=== PATIENT | female | born 1995 | race Caucasian/White ===

== ENCOUNTER 2016-09-02 10:19 | Emergency (ER) | payer MEDICAID ==
[2016-09-02 10:49] LABS: Urine Bilirubin Negative (NEGATIVE); Urine Blood Negative /ul (NEGATIVE); Urine Ketone Negative (NEGATIVE); Urine Nitrite Negative (NEGATIVE); Urine Protein Negative (NEGATIVE); Urine Specific Gravity 1.015 SP.GR. (1.005-1.010); Urine Urobilinogen Normal (NORMAL)
[2016-09-02 10:58] LABS: Urine Appearance Clear; Urine Bacteria TRACE; Urine Color Yellow; Urine RBC None Seen /hpf (0-5)
--- NOTE | 2016-09-02 11:06 | ERNOTE ---
Medical Problem HPI - Narrative Date of Service: 09/02/16 - General Chief Complaint: General Assessment Time Seen by Provider: 09/02/16 10:47 Source: patient Exam Limitations: no limitations - Immun/Allergies/Home Medications Immunizations: IMMUNIZATION HX Immunizations Up to Date Yes History of Influenza Vaccine Yes Hx Pneumococcal Vaccination No Allergies/Adverse Reactions: Allergies miconazole nitrate [From Monistat 3] Allergy (Verified 07/19/16 23:16) Hives skin cleanser combination no.17 [From Monistat 3] Allergy (Verified 07/19/16 23: 16) Hives Home Medications: HOME MEDICATIONS Ibuprofen [Motrin] 200 - 800 mg PO Q6H PRN #100 tab 07/21/16 [Last Taken Unknown ] Cephalexin Monohydrate [Keflex] 500 mg PO QID #40 cap 09/02/16 [Last Taken Unknown] - History of Present History Narrative: Pt. comes in with c/o three day history of sore throat, nausea, vomiting, and dysuria with cramping. Pt. has Suprapubic pain without radiation and dysuria and then she states her sore throat and rhinorrhea started a day later. Pt. denies any SOB, CP, diarrhea, constipation, intolerance of foods or fluids at this time. Review of Systems - Review of Systems Constitutional: Present: no symptoms reported. Absent: recent illness, fever, chills, weakness, fatigue, malaise EYE: Present: no symptoms reported ENT: Present: nose congestion, nasal drainage, sore throat Respiratory: Present: no symptoms reported. Absent: shortness of breath, cough , wheezing Cardiology: Present: no symptoms reported. Absent: chest pain, palpitations, edema Gastrointestinal/Abdominal: Present: nausea, vomiting, abdominal pain - suprapubic. Absent: diarrhea Genitourinary: Present: frequency, dysuria Musculoskeletal: Present: no symptoms reported. Absent: back pain, joint pain Skin: Present: no symptoms reported. Absent: rash, change in color Neurological: Present: no symptoms reported. Absent: headache, dizziness/light- headedness, numbness, tingling Endocrine: Present: no symptoms reported Hematologic/Lymphatic: Present: no symptoms reported All Other Systems: All systems neg except as marked - Patient's Past Medical History Patient History - Medical: UTI'S Patient History - Cardiac/Respiratory: No pertinent hx Patient History - Cancer: No Hx of Cancer Patient History - Surgical Procedures: No surgical history LMP (females 10-50): last week - Family History Mother Family History - Medical: No pertinent hx Father Family History - Medical: No pertinent hx - Social History Living Situations: significant other Smoking Status: Current every day smoker Patient requests Smoking Cessation Consult: No Alcohol Use: none Drug Use: none Physical Exam - Physical Exam General Appearance: Present: wd/wn, alert, no apparent distress Eye Exam: Normal inspection: bilateral, PERRL: bilateral, EOMI: bilateral Ears, Nose, Throat: Present: hearing grossly normal, nasal congestion, pharyngeal erythema Neck: Present: normal inspection, nontender. Absent: lymphadenopathy (R), lymphadenopathy (L) Respiratory: Present: no respiratory distress, normal breath sounds, no accessory muscle use, chest nontender, lungs clear Cardiovascular/Chest: Present: regular rate, rhythm, no murmur, normal peripheral pulses Gastrointestinal/Abdominal: Present: normal bowel sounds, nondistended, soft, no organomegaly, tenderness - suprapubic Back Exam: Present: normal inspection, normal range of motion, no CVA tenderness , no vertebral tenderness Extremity Exam: Present: normal inspection, non-tender, no edema, normal range of motion Neurological Exam: Present: alert, oriented, normal mood/affect, no motor/ sensory deficits, 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 Absent: pallor, skin rash ED Progress - Date and Time Seen: Date and Time: 09/02/16 11:07 Pt. with a high number of luek estrace and some bacteria will treat although pt does have epithelial cells as clinically I feel pt. definitly has a UTI and her culture will not be aeseptic. - Results and Orders Patient's Lab Results:: I have reviewed the patient's lab results. - Vital Signs Patient's Vital Signs:: I have reviewed the patient's vital signs. Vital Signs: Vital Signs 09/02/16 10:29 Temperature 36.2 C L Pulse Rate 82 Respiratory 14 Rate Blood Pressure 142/68 O2 Sat by Pulse 98 Oximetry - Progress/Reassessment Chief Complaint: General Assessment Departure - Departure Clinical Impression: UTI (urinary tract infection) Qualifiers: Urinary tract infection type: acute cystitis Hematuria presence: without hematuria Qualified Code(s): N30.00 - Acute cystitis without hematuria Upper respiratory infection Qualifiers: URI type: unspecified viral URI Qualified Code(s): J06.9 - Acute upper respiratory infection, unspecified; B97.89 - Other viral agents as the cause of diseases classified elsewhere Disposition: Home self-care Condition: Good Instructions: Upper Respiratory Infection, Adult, [id number], Urinary Tract Infection, Adult, [id number] Additional Instructions: [facility] for control and to ensure that UTI is resolved....please use a condoms in the mean time. Prescriptions: Cephalexin Monohydrate [Keflex] 500 mg PO QID #40 cap
[2016-09-02 11:30] VITALS: BP 133/65
== END 2016-09-02 11:28 | disposition home or self-care (01) ==
LOC: ER 10:19
DX: J06.9 Acute upper respiratory infection, unspecified (principal); B97.89 Other viral agents as the cause of diseases classified elsewhere; N30.00 Acute cystitis without hematuria; F17.210 Nicotine dependence, cigarettes, uncomplicated

== ENCOUNTER 2016-09-13 08:53 | Emergency (ER) | payer MEDICAID ==
[2016-09-13 09:05] VITALS: BP 144/84
[2016-09-13] MEDS ORDERED: NORMAL SALINE 1,000 ML IV ONE (09:08)
[2016-09-13 09:21] LABS: Hematocrit 36.1 % (37.0-47.0); Hemoglobin 11.7 gm/dL (12.5-16.0); Mean Cell Volume 86.2 fl (78-100); Mean Corpuscular Hemoglobin 27.9 pg (27-31); Mean Corpuscular Hgb Conc 32.4 g/dl (32-36); Mean Platelet Volume 10.1 fl (6.0-9.5); Neutrophil # 5.1 K/mm3 (1.3-6.0); Neutrophil % 60.4 % (42-75.0); Platelet Count 299 K/mm3 (150-450); Red Blood Count 4.19 M/mm3 (4.2-5.4); Red Cell Distribution Width 12.9 % (11.5-14.0); White Blood Count 8.4 K/mm3 (4.0-10.5)
--- NOTE | 2016-09-13 09:21 | ERNOTE ---
Dizziness ER Record Date of Service: 09/13/16 Presenting Symptoms: other - vomiting Time Seen by Provider: 09/13/16 09:04 Source: patient Exam Limitations: no limitations Immunizations: IMMUNIZATION HX Immunizations Up to Date Yes History of Influenza Vaccine Yes Hx Pneumococcal Vaccination No Allergies/Adverse Reactions: Allergies Allergy/AdvReac Type Severity Reaction Status Date / Time miconazole nitrate Allergy Hives Verified 07/19/16 23:16 [From Monistat 3] skin cleanser combination Allergy Hives Verified 07/19/16 23:16 no.17 [From Monistat 3] Home Medications: HOME MEDICATIONS Norgestimate-Ethinyl Estradiol [[place]-Linyah] 1 each PO DAILY 09/13/16 [Last Taken 09/13/16] Ondansetron [Zofran Odt] 4 mg PO Q8H PRN #6 tab.rapdis 09/13/16 [Last Taken Unknown] - History of Present Illness Narrative: Patient presents to the ED for vomiting. She relates she has been dizzy for the last week. Last night developed non-bloody diarrhea then vomitied this am and has been having on-going diarrhea with increased dizziness with standing. Vomiting and diarrhea are the primary reason she came in. She states she called into work sick and threw up while talking to her boss. No CP or SOB. No abdominal pain. No other sick contacts. Timing and Duration: sudden onset, still present Episodes lasting:: last night Worse/persistent since:: diarrhea persistent Severity: max: moderate Severity: currently: mild Associated Symptoms: Present: nausea, vomiting, light headedness. Absent: headache, weakness Sense of movement: Absent: spinning Decreased ability to stand/walk:: Present: walks w/o assistance. Absent: weak, difficult, off balance, cannot walk, cannot stand, falling Modifying Factors - (Improves): Reports: standing position Modifying Factors - (Worsens): Reports: nothing Review of Systems - Review of Systems Constitutional: Absent: fever ENT: Absent: sore throat Respiratory: Absent: shortness of breath Cardiology: Absent: chest pain Gastrointestinal/Abdominal: Present: vomiting, diarrhea. Absent: abdominal pain Genitourinary: Absent: dysuria Skin: Present: other - rash on armsrecently Neurological: Absent: headache, weakness - Patient's Past Medical History Patient History - Medical: UTI'S Patient History - Cardiac/Respiratory: No pertinent hx Patient History - Cancer: No Hx of Cancer Patient History - Surgical Procedures: No surgical history Patient History - Other: None LMP (Calendar): 08/22/16 - Family History Mother Family History - Medical: No pertinent hx Father Family History - Medical: No pertinent hx - Social History Living Situations: home Smoking Status: Current every day smoker Have you smoked in the past 12 months: Yes Alcohol Use: none Drug Use: none - Immunizations Immunizations Up to Date: Yes Hx Pneumococcal Vaccination: No History of Influenza Vaccine: Yes Physical Exam - Physical Exam General Appearance: Present: alert, no apparent distress Eye Exam: Normal inspection: bilateral, PERRL: bilateral Ears, Nose, Throat: Present: normal ENT inspection, normal pharynx. Absent: nasal congestion, dry mucous membranes Neck: Present: normal inspection Respiratory: Present: no respiratory distress, normal breath sounds, no accessory muscle use, lungs clear Cardiovascular/Chest: Present: regular rate, rhythm, normal peripheral pulses Gastrointestinal/Abdominal: Present: normal bowel sounds, nontender, nondistended, soft. 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 Absent: motor weakness Skin Exam: Present: skin rash, other - apparent contact dermatitis forearms. no other rash, no urticaria. ED Progress - Results and Orders Patient's Lab Results:: I have reviewed the patient's lab results. - Vital Signs Patient's Vital Signs:: I have reviewed the patient's vital signs. Vital Signs: Vital Signs 09/13/16 08:58 Temperature 35.5 C L Pulse Rate 102 H Respiratory 14 Rate Blood Pressure 144/84 O2 Sat by Pulse 99 Oximetry - Progress/Reassessment Chief Complaint: Dizziness Progress Note-Subjective: 09/13/16 10:26 Re-check [id number]. Fluids nearly infused. Feels improved. No vomiting here. She feels like going home. Abd non-tender. Zofran. She is stable non-toxic and in no distress. Departure Clinical Impression: Vomiting, Diarrhea - Departure Disposition: Home self-care Condition: Stable Instructions: Nausea, Adult Additional Instructions: Follow-up with a doctor friday for a re-check. Zofran, this is of uncertain safety in , no breast feeding while taking. Clear liquids. Rest. Return for fever, pain or if your condition worsens of changes in any way. Prescriptions: Ondansetron [Zofran Odt] 4 mg PO Q8H PRN #6 tab.rapdis PRN Reason: Nausea
[2016-09-13 09:36] LABS: Albumin * 3.6 gm/dl (3.4-5.0); Anion Gap 11.1 mmol/L (6.8-13.8); BUN/Creatinine Ratio 15.7 (9.0-21.6); Bilirubin, Total 0.3 mg/dL (0.0-1.1); Ca. Corrected For Albumin 8.7 mg/dL (8.4-10.2); Calcium * 8.7 mg/dL (7.9-10.9); Carbon Dioxide 26.6 mmol/L (24-32.6); Potassium 3.7 mmol/L (3.4-4.6); Total Protein 7.7 gm/dL (6.2-8.2)
[2016-09-13 10:03] LABS: Urine Bilirubin Negative (NEGATIVE); Urine Blood 50 /ul (NEGATIVE); Urine Ketone Negative (NEGATIVE); Urine Nitrite Negative (NEGATIVE); Urine Protein Negative (NEGATIVE); Urine Urobilinogen Normal (NORMAL)
[2016-09-13 10:12] LABS: Urine Appearance Slightly Cloudy; Urine Bacteria 2+; Urine Color Yellow; Urine RBC None Seen /hpf (0-5); Urine WBC 0-5 /hpf (0-5)
== END 2016-09-13 10:45 | disposition home or self-care (01) ==
LOC: ER 08:53
DX: R11.10 Vomiting, unspecified (principal); R19.7 Diarrhea, unspecified; F17.210 Nicotine dependence, cigarettes, uncomplicated; Z87.440 Personal history of urinary (tract) infections

== ENCOUNTER 2016-09-16 21:46 | Emergency (ER) | payer MEDICAID ==
[2016-09-16] MEDS ORDERED: ONDANSETRON HCL/PF 2 MG/ML VIAL IV ONE (23:04)
[2016-09-16] MEDS ORDERED: NORMAL SALINE 1,000 ML IV ONE (23:06)
--- NOTE | 2016-09-16 23:07 | ERNOTE ---
Headache ER HPI - General Presenting Symptoms: headache Time Seen by Provider: 09/16/16 22:52 Source: patient Exam Limitations: no limitations - Immun/Allergies/Home Medications Immunizations: IMMUNIZATION HX Immunizations Up to Date Yes History of Influenza Vaccine Yes Hx Pneumococcal Vaccination No Allergies/Adverse Reactions: Allergies miconazole nitrate [From Monistat 3] Allergy (Verified 09/16/16 22:09) Hives skin cleanser combination no.17 [From Monistat 3] Allergy (Verified 09/16/16 22: 09) Hives Home Medications: HOME MEDICATIONS Norgestimate-Ethinyl Estradiol [[place]-Linyah] 1 each PO DAILY 09/13/16 [Last Taken 09/13/16] Ondansetron [Zofran Odt] 4 mg PO Q8H PRN #6 tab.rapdis 09/13/16 [Last Taken Unknown] Acetaminophen/Caffeine [Excedrin Tension Headache Cplt] 1 each PO 09/16/16 [ Last Taken 09/16/16 21:30] Ciprofloxacin HCl [Cipro] 500 mg PO BID #4 tab 09/17/16 [Last Taken Unknown] - Pain Pain Score: 8 - History of Present Illness Narrative: Pt had sudden onset of headache behind her eyes b/l with N/V approx 2 hours ago Activity at onset: other Timing of Headache: abrupt Quality: Present: throbbing Severity Maximum: Present: severe Severity-Currently: Present: severe Headache frequency: Present: no recent headache - last headache approx 7 months ago Modifying Factors - (Worsens): Reports: movement, exposure to light Associated Symptoms: Reports: nausea, vomiting, sweating Exacerbated by:: Reports: light, noise Review of Systems - Review of Systems Constitutional: Present: other - 'shaking'. Absent: recent illness EYE: Present: no symptoms reported ENT: Present: no symptoms reported Respiratory: Absent: cough Gastrointestinal/Abdominal: Present: See HPI, nausea, vomiting. Absent: abdominal pain Genitourinary: Absent: frequency, pain Musculoskeletal: Absent: back pain, neck pain Skin: Absent: rash Neurological: Present: tingling - of fingers Endocrine: Present: no symptoms reported - Patient's Past Medical History Patient History - Medical: Depression, UTI'S Patient History - Cardiac/Respiratory: No pertinent hx Patient History - Cancer: No Hx of Cancer Patient History - Surgical Procedures: No surgical history Patient History - Other: None LMP (Calendar): 09/13/16 - Family History Mother Family History - Medical: No pertinent hx Father Family History - Medical: No pertinent hx - Social History Living Situations: home Smoking Status: Current every day smoker Alcohol Use: none Drug Use: none - Immunizations Immunizations Up to Date: Yes Hx Pneumococcal Vaccination: No History of Influenza Vaccine: Yes Physical Exam - Physical Exam General Appearance: Present: wd/wn, alert, mild distress, moderate distress Eye Exam: Normal inspection: bilateral, PERRL: bilateral, EOMI: bilateral Ears, Nose, Throat: Present: normal ENT inspection, hearing grossly normal Neck: Present: normal inspection, nontender, supple Respiratory: Present: no respiratory distress, no accessory muscle use Back Exam: Present: normal inspection, no vertebral tenderness Extremity Exam: Present: normal inspection, non-tender, no edema, normal range of motion Neurological Exam: Present: alert, oriented, no motor/sensory deficits Skin Exam: Present: normal color, warm/dry Lymphatic Exam: Present: no adenopathy ED Progress - Results and Orders Patient's Lab Results:: I have reviewed the patient's lab results. Results and Orders: Laboratory Tests 09/16/16 09/16/16 09/16/16 23:25 23:25 23:40 WBC 13.1 H Hgb 11.2 L Hct 34.7 L Plt Count 298 Sodium 140 Potassium 3.6 Chloride 104 Carbon Dioxide 24.6 Anion Gap 15.0 H BUN 6 Creatinine 0.65 Est GFR (Non-Af Amer) 124 Random Glucose 96 Calcium 8.9 Calcium Adj for Albumin 9.0 Total Bilirubin 0.3 AST 20 ALT 24 Alkaline Phosphatase 92 Total Protein 8.0 Albumin 3.5 Amylase 58 Lipase 110 Urine Color Urine Appearance Urine pH Ur Specific [place] Urine Protein Urine Glucose (UA) Urine Ketones Urine Blood Urine Nitrate Urine Bilirubin Urine Urobilinogen Ur Leukocyte Esterase Urine RBC Urine WBC Ur Epithelial Cells Urine Bacteria Urine Culture Comments Urine HCG, Qual Negative 09/16/16 23:40 WBC Hgb Hct Plt Count Sodium Potassium Chloride Carbon Dioxide Anion Gap BUN Creatinine Est GFR (Non-Af Amer) Random Glucose Calcium Calcium Adj for Albumin Total Bilirubin AST ALT Alkaline Phosphatase Total Protein Albumin Amylase Lipase Urine Color Pale yellow Urine Appearance Clear Urine pH 6.0 Ur Specific [place] 1.015 Urine Protein Negative Urine Glucose (UA) Negative Urine Ketones Negative Urine Blood 50 H Urine Nitrate Negative Urine Bilirubin Negative Urine Urobilinogen Normal Ur Leukocyte Esterase 75 H Urine RBC None seen Urine WBC 0-5 Ur Epithelial Cells 5-10 H Urine Bacteria 2+ H Urine Culture Comments Culture to follow Urine HCG, Qual - Vital Signs Patient's Vital Signs:: I have reviewed the patient's vital signs. Vital Signs: Vital Signs 09/16/16 22:04 Temperature 36.5 C Pulse Rate 96 Respiratory 18 Rate Blood Pressure 145/78 O2 Sat by Pulse 99 Oximetry - Progress/Reassessment Chief Complaint: Headache Progress:: Improved Departure Clinical Impression: Urinary tract infection Qualifiers: Urinary tract infection type: acute pyelonephritis Qualified Code(s): N10 - Acute pyelonephritis - Departure Disposition: Home Follow Up Needed Condition: Good Instructions: Urinary Tract Infection, Adult, [id number] Additional Instructions: See your regular doctor for follow up on urine cultures Prescriptions: Ciprofloxacin HCl [Cipro] 500 mg PO BID #4 tab
[2016-09-16 23:25] LABS: Hematocrit 34.7 % (37.0-47.0); Hemoglobin 11.2 gm/dL (12.5-16.0); Mean Cell Volume 86.5 fl (78-100); Mean Corpuscular Hemoglobin 27.9 pg (27-31); Mean Corpuscular Hgb Conc 32.3 g/dl (32-36); Mean Platelet Volume 10.1 fl (6.0-9.5); Neutrophil # 8.5 K/mm3 (1.3-6.0); Platelet Count 298 K/mm3 (150-450); Red Blood Count 4.01 M/mm3 (4.2-5.4); Red Cell Distribution Width 13.1 % (11.5-14.0); White Blood Count 13.1 K/mm3 (4.0-10.5)
[2016-09-16 23:40] LABS: Albumin * 3.5 gm/dl (3.4-5.0); BUN/Creatinine Ratio 9.2 (9.0-21.6); Bilirubin, Total 0.3 mg/dL (0.0-1.1); Calcium * 8.9 mg/dL (7.9-10.9); Carbon Dioxide 24.6 mmol/L (24-32.6); Potassium 3.6 mmol/L (3.4-4.6)
[2016-09-16] MEDS ORDERED: ONDANSETRON HCL/PF 2 MG/ML VIAL ONE (23:43)
[2016-09-16 23:58] LABS: Urine Bilirubin Negative (NEGATIVE); Urine Blood 50 /ul (NEGATIVE); Urine Ketone Negative (NEGATIVE); Urine Nitrite Negative (NEGATIVE); Urine Protein Negative (NEGATIVE); Urine Specific Gravity 1.015 SP.GR. (1.005-1.010); Urine Urobilinogen Normal (NORMAL)
[2016-09-17 00:07] LABS: Urine Appearance Clear; Urine Bacteria 2+; Urine Color Pale Yellow; Urine RBC None Seen /hpf (0-5); Urine WBC 0-5 /hpf (0-5)
[2016-09-17] MEDS ORDERED: ORPHENADRINE CITRATE 30 MG/ML VIAL IV ONE (00:59)
[2016-09-17] MEDS ORDERED: diphenhydrAMINE HCL 50 MG/ML VIAL IV ONE (00:59)
[2016-09-17] MEDS ORDERED: diphenhydrAMINE HCL 50 MG/ML VIAL ONE (01:12)
[2016-09-17] MEDS ORDERED: ORPHENADRINE CITRATE 30 MG/ML VIAL ONE (01:12)
[2016-09-17 03:28] VITALS: BP 122/79
== END 2016-09-17 02:37 | disposition home or self-care (01) ==
LOC: ER 21:46
DX: N10 Acute pyelonephritis (principal); F17.210 Nicotine dependence, cigarettes, uncomplicated

== ENCOUNTER 2017-05-15 19:10 | Emergency (ER) | payer MEDICAID ==
[2017-05-15 19:19] VITALS: BP 123/73
[2017-05-15] MEDS ORDERED: KETOROLAC TROMETHAMINE 30 MG/ML VIAL IV ONE (19:59)
[2017-05-15] MEDS ORDERED: NORMAL SALINE 1,000 ML IV ONE (19:59)
[2017-05-15] MEDS ORDERED: PROMETHAZINE HCL 25 MG in DEXTROSE 5 % IN WATER 50 ML IV ONE ×4 (19:59→21:00)
[2017-05-15] MEDS ORDERED: diphenhydrAMINE HCL 50 MG/ML VIAL IV ONE (19:59)
--- NOTE | 2017-05-15 20:06 | ERNOTE ---
Headache ER HPI - Narrative Date of Service: 05/15/17 - General Presenting Symptoms: "migraine" Time Seen by Provider: 05/15/17 19:49 Source: patient Exam Limitations: no limitations - Immun/Allergies/Home Medications Immunizations: IMMUNIZATION HX Immunizations Up to Date Yes History of Influenza Vaccine Yes Hx Pneumococcal Vaccination No Allergies/Adverse Reactions: Allergies miconazole nitrate [From Monistat 3] Allergy (Verified 09/16/16 22:09) Hives skin cleanser combination no.17 [From Monistat 3] Allergy (Verified 09/16/16 22: 09) Hives Home Medications: HOME MEDICATIONS Ondansetron [Zofran Odt] 4 mg PO Q8H PRN #6 tab.rapdis 09/13/16 [Last Taken Unknown] Acetaminophen/Caffeine [Excedrin Tension Headache Cplt] 1 each PO 09/16/16 [ Last Taken 09/16/16 21:30] - History of Present Illness Narrative: Pt. comes in with c/o migraine for four days. Pt. denies any blurred vision, double vision or that this is the worst headache ever. Pt. states that she normally takes an abortive medication that she cannot remember the name of but states that she is out of it and cannot get any more for 10 more days. Pt. denies any SOB, CP, NVD, fever, recent illness or injury. Pt. was seen at the [facility] 2 days ago for similar symptoms and denies relief. Review of Systems - Review of Systems Constitutional: Present: no symptoms reported. Absent: recent illness, fever, chills, weakness, fatigue, malaise EYE: Present: no symptoms reported ENT: Present: no symptoms reported Respiratory: Present: no symptoms reported. Absent: shortness of breath, cough , wheezing Cardiology: Present: no symptoms reported. Absent: chest pain, palpitations, edema Gastrointestinal/Abdominal: Present: no symptoms reported. Absent: nausea, vomiting, diarrhea Genitourinary: Present: no symptoms reported Musculoskeletal: Present: no symptoms reported. Absent: back pain, joint pain Skin: Present: no symptoms reported. Absent: rash, change in hair/nails Neurological: Present: headache. Absent: dizziness/light-headedness, numbness, tingling All Other Systems: All systems neg except as marked - Patient's Past Medical History Patient History - Medical: Depression, UTI'S Patient History - Cardiac/Respiratory: No pertinent hx Patient History - Cancer: No Hx of Cancer Patient History - Surgical Procedures: No surgical history Patient History - Other: None LMP (females 10-50): last week LMP (Calendar): 09/13/16 - Family History Mother Family History - Medical: No pertinent hx Father Family History - Medical: No pertinent hx - Social History Living Situations: home Abuse History: No History of abuse Psych History: Hx of Depression Smoking Status: Current some day smoker Patient requests Smoking Cessation Consult: No Initiate information on Smoking Cessation: No Alcohol Use: none Drug Use: none - Immunizations Immunizations Up to Date: Yes Hx Pneumococcal Vaccination: No History of Influenza Vaccine: Yes Physical Exam - Physical Exam General Appearance: Present: wd/wn, alert, no apparent distress Head Exam: Present: normal inspection, no evidence of injury Eye Exam: Normal inspection: bilateral, PERRL: bilateral, EOMI: bilateral Ears, Nose, Throat: Present: normal ENT inspection, normal pharynx Neck: Present: normal inspection, nontender. 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 Absent: pallor, skin rash ED Progress - Vital Signs Patient's Vital Signs:: I have reviewed the patient's vital signs. Vital Signs: Vital Signs 05/15/17 19:17 Temperature 36.6 C Pulse Rate 80 Respiratory 16 Rate Blood Pressure 123/73 O2 Sat by Pulse 98 Oximetry - Progress/Reassessment Chief Complaint: Headache Progress:: Pain free at discharge Departure Clinical Impression: Migraine Qualifiers: Migraine type: unspecified Status migrainosus presence: without status migrainosus Intractability: not intractable Qualified Code(s): G43.909 - Migraine, unspecified, not intractable, without status migrainosus - Departure Disposition: Home self-care Condition: Good Instructions: Recurrent Migraine Headache, [id number] Additional Instructions: Please follow up with primary provider in 2-3 days. Referrals: Mercedes Rodriguez ARNP [Primary Care Provider] -
[2017-05-15] MEDS ORDERED: diphenhydrAMINE HCL 50 MG/ML VIAL ONE (20:26)
[2017-05-15] MEDS ORDERED: KETOROLAC TROMETHAMINE 30 MG/ML VIAL ONE (20:26)
== END 2017-05-15 21:54 | disposition home or self-care (01) ==
LOC: ER 19:10
DX: G43.909 Migraine, unspecified, not intractable, without status migrainosus (principal); F17.200 Nicotine dependence, unspecified, uncomplicated

== ENCOUNTER 2017-05-30 19:45 | Emergency (ER) | payer MEDICAID ==
--- NOTE | 2017-05-30 20:02 | ERNOTE ---
Headache ER HPI - General Presenting Symptoms: headache Time Seen by Provider: 05/30/17 20:02 Source: patient, RN notes reviewed Exam Limitations: no limitations - Immun/Allergies/Home Medications Immunizations: IMMUNIZATION HX Immunizations Up to Date Yes History of Influenza Vaccine Yes Hx Pneumococcal Vaccination No Allergies/Adverse Reactions: Allergies miconazole nitrate [From Monistat 3] Allergy (Verified 05/30/17 19:59) Hives skin cleanser combination no.17 [From Monistat 3] Allergy (Verified 05/30/17 19: 59) Hives Home Medications: HOME MEDICATIONS SUMAtriptan SUCCINATE [Imitrex] 50 mg PO PRN PRN 05/30/17 [Last Taken Unknown] - History of Present Illness Narrative: Patient here with complaints of a migraine headache that is making her vomit. She states she is vomiting up blood. She was just here on 05/15/2017 with complaints of a headache, treated with Toradol, Benadryl and Phenergan with complete relief. She notes that the nose bleeds started about a week ago, this is the third day of nosebleeds. Her bloody emesis has been after nosebleeds. She also has a "lump" on the back of her head on the right side, she states that it swells with her headaches. Until recently she had never noted a bump on the back of her head. She notes that the headache started after an argument with her , they then temporarily and are now back together. 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 The headache is her major concern, but the nosebleeds are really bothering her also. Activity at onset: argument Timing of Headache: gradual Quality: Present: pressure, throbbing Severity Maximum: Present: moderate Severity-Currently: Present: moderate Headache frequency: Present: frequent headaches Modifying Factors - (Worsens): Reports: movement Associated Symptoms: Reports: nausea, vomiting - bloody emesis after a nosebleed Exacerbated by:: Reports: light, noise, movement, position Prior Treament: Reports: recently seen, similar symptoms before Review of Systems - Review of Systems Constitutional: Absent: recent illness, fever, chills EYE: Absent: eye pain ENT: Absent: ear pain, nose congestion Respiratory: Absent: shortness of breath, cough Cardiology: Absent: chest pain, palpitations Gastrointestinal/Abdominal: Present: nausea, vomiting Genitourinary: Present: no symptoms reported Musculoskeletal: Present: no symptoms reported Skin: Present: other - lump on left posterior head Neurological: Absent: anxiety, depressed Endocrine: Present: no symptoms reported Hematologic/Lymphatic: Present: no symptoms reported Psych: Present: no symptoms reported - Patient's Past Medical History Patient History - Medical: Depression, Migraines, UTI'S Patient History - Cardiac/Respiratory: No pertinent hx Patient History - Cancer: No Hx of Cancer Patient History - Surgical Procedures: EGD Patient History - Other: None LMP (Calendar): 05/16/17 - Family History Mother Family History - Medical: No pertinent hx Father Family History - Medical: No pertinent hx - Social History Living Situations: home Abuse History: No History of abuse Psych History: Hx of Depression Smoking Status: Current some day smoker Alcohol Use: occasionally Drug Use: none - Immunizations Immunizations Up to Date: Yes Hx Pneumococcal Vaccination: No History of Influenza Vaccine: Yes Physical Exam - Physical Exam General Appearance: Present: wd/wn, alert, no apparent distress Head Exam: Present: normal inspection, no evidence of injury Eye Exam: Normal inspection: bilateral, PERRL: bilateral, EOMI: bilateral Ears, Nose, Throat: Present: normal ENT inspection, normal pharynx, other - nasal passages are light red, appear irritated, no hair noted. Neck: Present: normal inspection, nontender, supple, full range of motion Respiratory: Present: no respiratory distress, normal breath sounds, no accessory muscle use, chest nontender, lungs clear Cardiovascular/Chest: Present: regular rate, rhythm, no murmur, normal peripheral pulses Gastrointestinal/Abdominal: Present: normal bowel sounds, nontender, nondistended, soft Back Exam: Present: normal inspection, normal range of motion Extremity Exam: Present: normal inspection, non-tender, normal range of motion, no edema Neurological Exam: Present: alert, oriented, normal mood/affect, no motor/ sensory deficits Skin Exam: Present: normal color, warm/dry Lymphatic Exam: Present: other - lump on posterior left head ED Progress - Vital Signs Patient's Vital Signs:: I have reviewed the patient's vital signs. Vital Signs: Vital Signs 05/30/17 19:53 Temperature 36.9 C Pulse Rate 98 Respiratory 18 Rate Blood Pressure 139/81 O2 Sat by Pulse 100 Oximetry - Progress/Reassessment Chief Complaint: Headache Progress:: Improved Departure Clinical Impression: Lymphadenopathy of head and neck Migraine Qualifiers: Migraine type: chronic without aura Status migrainosus presence: without status migrainosus Intractability: intractable Qualified Code(s): G43.719 - Chronic migraine without aura, intractable, without status migrainosus - Departure Disposition: Home self-care Condition: Good Instructions: Recurrent Migraine Headache, Lymphadenopathy Referrals: Mercedes Rodriguez ARNP [Primary Care Provider] - (Call Friday to see if you can get in earlier, as in the next 5-7 days)
[2017-05-30] MEDS ORDERED: diphenhydrAMINE HCL 50 MG/ML VIAL IM ONE (20:39)
[2017-05-30] MEDS ORDERED: PROMETHAZINE HCL 25 MG/ML AMPUL IM ONE (20:39)
[2017-05-30] MEDS ORDERED: PROMETHAZINE HCL 25 MG/ML AMPUL ONE (20:42)
[2017-05-30] MEDS ORDERED: diphenhydrAMINE HCL 50 MG/ML VIAL ONE (20:42)
[2017-05-30 21:35] VITALS: BP 120/67
== END 2017-05-30 21:34 | disposition home or self-care (01) ==
LOC: ER 19:45
DX: R59.1 Generalized enlarged lymph nodes (principal); G43.719 Chronic migraine without aura, intractable, without status migrainosus; F17.200 Nicotine dependence, unspecified, uncomplicated

== ENCOUNTER 2017-06-05 19:01 | Emergency (ER) | payer MEDICAID ==
--- NOTE | 2017-06-05 20:20 | ERNOTE ---
Medical Problem HPI - Narrative Date of Service: 06/05/17 - General Chief Complaint: Nausea/Vomiting Time Seen by Provider: 06/05/17 19:11 Source: patient Exam Limitations: no limitations - Immun/Allergies/Home Medications Immunizations: IMMUNIZATION HX Immunizations Up to Date Yes History of Influenza Vaccine No Hx Pneumococcal Vaccination No Allergies/Adverse Reactions: Allergies miconazole nitrate [From Monistat 3] Allergy (Verified 06/05/17 19:12) Hives skin cleanser combination no.17 [From Monistat 3] Allergy (Verified 06/05/17 19: 12) Hives Home Medications: HOME MEDICATIONS NK [No Home Medication] 06/05/17 [Last Taken Unknown] - History of Present History Narrative: Pt. comes in with c/o possibly being . Pt. states that she has been nauseated in the morning for 2 days but it is resolved by noon and she states that she took a test just prior to arrival that was positive but she was worried about false positives. Review of Systems - Review of Systems Constitutional: Present: no symptoms reported. Absent: recent illness, fever, chills, weakness, fatigue, malaise EYE: Present: no symptoms reported ENT: Present: no symptoms reported Respiratory: Present: no symptoms reported. Absent: shortness of breath, cough , wheezing Cardiology: Present: no symptoms reported. Absent: chest pain, palpitations, edema Gastrointestinal/Abdominal: Present: nausea. Absent: vomiting, diarrhea, abdominal pain Genitourinary: Present: no symptoms reported. Absent: frequency, decreased urinary output Musculoskeletal: Present: no symptoms reported. Absent: back pain, joint pain Skin: Present: no symptoms reported. Absent: rash, change in color Neurological: Present: no symptoms reported. Absent: headache, dizziness/light- headedness, numbness, tingling All Other Systems: All systems neg except as marked - Patient's Past Medical History Patient History - Medical: Depression, Migraines, UTI'S Patient History - Cardiac/Respiratory: No pertinent hx Patient History - Cancer: No Hx of Cancer Patient History - Surgical Procedures: EGD Patient History - Other: None LMP (females 10-50): 1 month LMP (Calendar): 05/05/17 - Family History Mother Family History - Medical: No pertinent hx Father Family History - Medical: No pertinent hx - Social History Living Situations: home Abuse History: No History of abuse Psych History: Hx of Depression Smoking Status: Former smoker Have you smoked in the past 12 months: Yes Alcohol Use: none Drug Use: none - Immunizations Immunizations Up to Date: Yes Hx Pneumococcal Vaccination: No History of Influenza Vaccine: No Physical Exam - Physical Exam General Appearance: Present: wd/wn, alert, no apparent distress Head Exam: Present: normal inspection, no evidence of injury Eye Exam: Normal inspection: bilateral Respiratory: Present: no respiratory distress, normal breath sounds, no accessory muscle use, chest nontender, lungs clear Cardiovascular/Chest: Present: regular rate, rhythm, no murmur, normal peripheral pulses Gastrointestinal/Abdominal: Present: normal bowel sounds, nontender, nondistended, soft, no organomegaly Back Exam: Present: normal inspection Extremity Exam: Present: normal inspection Neurological Exam: Present: alert, oriented, normal mood/affect, no motor/ sensory deficits Skin Exam: Present: normal color, warm/dry. Absent: pallor, skin rash ED Progress - Vital Signs Patient's Vital Signs:: I have reviewed the patient's vital signs. Vital Signs: Vital Signs 06/05/17 19:06 Temperature 36.8 C Pulse Rate 89 Respiratory 18 Rate Blood Pressure 129/92 O2 Sat by Pulse 100 Oximetry - Progress/Reassessment Chief Complaint: Nausea/Vomiting Progress:: Unchanged Departure Clinical Impression: Qualifiers: Weeks of gestation: unspecified Qualified Code(s): Z34.90 - Encounter for supervision of normal , unspecified, unspecified trimester - Departure Disposition: Home self-care Condition: Good Instructions: Test Information Additional Instructions: Please follow up with [facility] as soon as able for first visit. Referrals: Mercedes Rodriguez ARNP [Primary Care Provider] -
[2017-06-05 20:26] VITALS: BP 139/82
== END 2017-06-05 20:27 | disposition home or self-care (01) ==
LOC: ER 19:01
DX: Z34.90 Encounter for supervision of normal pregnancy, unspecified, unspecified trimester (principal); R11.0 Nausea; Z87.440 Personal history of urinary (tract) infections; Z87.891 Personal history of nicotine dependence

== ENCOUNTER 2017-06-23 09:18 | Emergency (ER) | payer MEDICAID ==
[2017-06-23 09:34] VITALS: BP 147/83
[2017-06-23 10:05] LABS: Urine Bilirubin Negative (NEGATIVE); Urine Ketone Negative (NEGATIVE); Urine Protein 100 mg/dL (NEGATIVE); Urine Urobilinogen Normal (NORMAL); Urine pH 6.5 pH (5.0-7.0)
[2017-06-23 10:14] LABS: Urine Appearance Cloudy; Urine Bacteria 3+; Urine Blood 10 /ul (NEGATIVE); Urine Color Yellow; Urine Nitrite Positive (NEGATIVE); Urine WBC 0-5 /hpf (0-5)
--- NOTE | 2017-06-23 10:15 | ERNOTE ---
ER Female HPI Stated Complaint: , SPOTTING Presenting Symptoms: vaginal bleeding Time Seen by Provider: 06/23/17 10:01 Source: patient Exam Limitations: no limitations Immunizations: IMMUNIZATION HX Immunizations Up to Date Yes History of Influenza Vaccine No Hx Pneumococcal Vaccination No Allergies/Adverse Reactions: Allergies miconazole nitrate [From Monistat 3] Allergy (Verified 06/23/17 09:32) Hives skin cleanser combination no.17 [From Monistat 3] Allergy (Verified 06/23/17 09: 32) Hives Home Medications: HOME MEDICATIONS Nitrofurantoin/Nitrofuran Mac [Macrobid] 100 mg PO Q12H #14 cap 06/23/17 [Last Taken Unknown] Thw246/Iron Fumarate/FA/Dss [ 19 Tablet] 1 each PO DAILY 06/23/17 [Last Taken Unknown] - History of Present Illness Narrative: Patient is a , has regular periods, LMP 916, found out a few days ago that she was , first OB appointment tomorrow. This morning she got pushed ( accidentally) into her child's crib, pushing her abdomen in the crib, no fall, no definite injury. Afterwards when she used the bathroom she noticed blood in her urine and a little blood with wiping, no blood in underwear, no noticeable blood while giving urine sample here, no abdominal pain or cramping Date (Duration): 06/23/17 Time (Timing): 08:30 Timing: Present: resolved prior to arrival Activities at Onset: Present: other Prior Abdominal Problems: Present: recent trauma Sexual [place] History: Present: single partner Associated Symptoms: Present: nausea. Absent: fever/chills, vomiting, dysuria, urinary frequency Review of Systems - Review of Systems Constitutional: Absent: recent illness, fever ENT: Absent: nose congestion, sore throat Respiratory: Absent: shortness of breath, cough Cardiology: Absent: chest pain Gastrointestinal/Abdominal: Present: See HPI, nausea. Absent: vomiting, abdominal pain Genitourinary: Present: See HPI. Absent: frequency, dysuria Musculoskeletal: Present: no symptoms reported Skin: Absent: rash Neurological: Absent: headache, weakness, numbness - Patient's Past Medical History Patient History - Medical: Depression, Migraines, UTI'S Patient History - Cardiac/Respiratory: No pertinent hx Patient History - Cancer: No Hx of Cancer Patient History - Surgical Procedures: EGD Patient History - Other: None LMP (females 10-50): - Family History Mother Family History - Medical: No pertinent hx Father Family History - Medical: No pertinent hx - Social History Living Situations: significant other Abuse History: No History of abuse Psych History: Hx of Depression - Immunizations Immunizations Up to Date: Yes Hx Pneumococcal Vaccination: No History of Influenza Vaccine: No Physical Exam - Physical Exam General Appearance: Present: wd/wn, alert, no apparent distress Respiratory: Present: no respiratory distress, normal breath sounds, no accessory muscle use, lungs clear Cardiovascular/Chest: Present: regular rate, rhythm, no murmur Gastrointestinal/Abdominal: Present: normal bowel sounds, nontender, nondistended, soft Neurological Exam: Present: alert, oriented, normal mood/affect Skin Exam: Present: normal color, warm/dry ED Progress - Results and Orders Patient's Lab Results:: I have reviewed the patient's lab results. - Vital Signs Patient's Vital Signs:: I have reviewed the patient's vital signs. Vital Signs: Vital Signs 06/23/17 09:28 Temperature 37.6 C H Pulse Rate 102 H Respiratory 14 Rate Blood Pressure 147/83 O2 Sat by Pulse 99 Oximetry - Progress/Reassessment Chief Complaint: Genitourinary Problem Progress Note-Subjective: 06/23/17 10:27 discussed results with patient and family reviewed most recent culture (06/2016 Ecoli pansensitive) Departure Clinical Impression: UTI (urinary tract infection) Qualifiers: Urinary tract infection type: acute cystitis Hematuria presence: with hematuria Qualified Code(s): N30.01 - Acute cystitis with hematuria - Departure Disposition: Home self-care Condition: Good Instructions: Urinary Tract Infection, Adult, [id number] Additional Instructions: follow up with Dr Moore tomorrow as scheduled Referrals: Joshua Moore DO [Primary Care Provider] - Prescriptions: Nitrofurantoin/Nitrofuran Mac [Macrobid] 100 mg PO Q12H #14 cap
== END 2017-06-23 10:33 | disposition home or self-care (01) ==
LOC: ER 09:18
DX: O23.11 Infections of bladder in pregnancy, first trimester (principal); Z87.440 Personal history of urinary (tract) infections; Z3A.01 Less than 8 weeks gestation of pregnancy

== ENCOUNTER 2017-07-16 18:29 | Emergency (ER) | payer MEDICAID ==
[2017-07-16] MEDS ORDERED: NORMAL SALINE 1,000 ML IV ONE (19:12)
[2017-07-16] MEDS ORDERED: ONDANSETRON HCL/PF 2 MG/ML VIAL IV ONE (19:12)
--- NOTE | 2017-07-16 19:17 | ERNOTE ---
<Nolberto Troy - Last Filed: 07/16/17 19:47> Medical Problem HPI - General Chief Complaint: Nausea/Vomiting Time Seen by Provider: 07/16/17 19:00 Source: patient, family Exam Limitations: no limitations - Immun/Allergies/Home Medications Immunizations: IMMUNIZATION HX Immunizations Up to Date Yes History of Influenza Vaccine No Hx Pneumococcal Vaccination No Allergies/Adverse Reactions: Allergies miconazole nitrate [From Monistat 3] Allergy (Verified 06/23/17 09:32) Hives skin cleanser combination no.17 [From Monistat 3] Allergy (Verified 06/23/17 09: 32) Hives Home Medications: HOME MEDICATIONS Nitrofurantoin/Nitrofuran Mac [Macrobid] 100 mg PO Q12H #14 cap 06/23/17 [Last Taken Unknown] Lbv119/Iron Fumarate/FA/Dss [ 19 Tablet] 1 each PO DAILY 06/23/17 [Last Taken Unknown] Ondansetron [Zofran Odt] 4 mg PO Q6H PRN #20 tab 07/16/17 [Last Taken Unknown] - History of Present History Narrative: Patient presents with approximately 3-4 days of nausea vomiting diarrhea. She states that she is a little over 10 weeks and just wants to make sure that she is not dehydrated. She complains of apparently mild epigastric abdominal pain cramping in nature Timing: intermittent Severity: mild Modifying Factors - (Worsens): Present: eating Review of Systems - Review of Systems Constitutional: Present: See HPI EYE: Present: no symptoms reported ENT: Present: no symptoms reported Respiratory: Present: cough Cardiology: Present: no symptoms reported Gastrointestinal/Abdominal: Present: nausea, vomiting, diarrhea Genitourinary: Present: no symptoms reported Musculoskeletal: Present: no symptoms reported Skin: Present: no symptoms reported Neurological: Present: no symptoms reported Endocrine: Present: no symptoms reported Hematologic/Lymphatic: Present: no symptoms reported Psych: Present: no symptoms reported - Patient's Past Medical History Patient History - Medical: Depression, Migraines, UTI'S, Other - patient is little over 10 weeks Patient History - Cardiac/Respiratory: No pertinent hx Patient History - Cancer: No Hx of Cancer Patient History - Surgical Procedures: EGD Patient History - Other: None LMP (females 10-50): LMP (Calendar): 05/05/17 - Family History Mother Family History - Medical: No pertinent hx Father Family History - Medical: No pertinent hx - Social History Living Situations: home Abuse History: No History of abuse Psych History: Hx of Depression Smoking Status: Former smoker Have you smoked in the past 12 months: Yes Alcohol Use: none Drug Use: none - Immunizations Immunizations Up to Date: Yes Hx Pneumococcal Vaccination: No History of Influenza Vaccine: No Physical Exam - Physical Exam General Appearance: Present: wd/wn, alert, mild distress Head Exam: Present: normal inspection, no evidence of injury Eye Exam: Normal inspection: bilateral, PERRL: bilateral Ears, Nose, Throat: Present: dry mucous membranes Neck: Present: normal inspection, nontender Respiratory: Present: no respiratory distress, normal breath sounds, no accessory muscle use, chest nontender, lungs clear Cardiovascular/Chest: Present: regular rate, rhythm, no murmur, normal peripheral pulses Gastrointestinal/Abdominal: Present: normal bowel sounds, nondistended, soft, no organomegaly, tenderness - mild epigastric tenderness Rectal Exam: Present: deferred Back Exam: Present: normal inspection, normal range of motion Extremity Exam: Present: normal inspection, non-tender, no edema, normal range of motion Neurological Exam: Present: alert, oriented, normal mood/affect Skin Exam: Present: normal color, warm/dry Lymphatic Exam: Present: no adenopathy ED Progress - Results and Orders Patient's Lab Results:: I have reviewed the patient's lab results. - Vital Signs Patient's Vital Signs:: I have reviewed the patient's vital signs. Vital Signs: Vital Signs 07/16/17 18:47 Temperature 37 C Pulse Rate 85 Respiratory 18 Rate Blood Pressure 133/76 O2 Sat by Pulse 99 Oximetry - Progress/Reassessment Chief Complaint: Nausea/Vomiting - Transfer of Care Physician Sign Out: Nolberto Troy Receiving Physician: Abner lAicea Plan - Plan Plan: I suspect the patient has a viral gastroenteritis be given IV fluid as well as Zofran IV. Care be turned over to Dr. Alicea for final disposition. Departure Clinical Impression: Gastroenteritis - Departure Disposition: Home self-care Condition: Good Instructions: Nausea, Adult Additional Instructions: clear liquids containing some sugar for the next 24 hours then advance your diet slowly. Take zofran every 8 hours for 24 hours then as needed. Referrals: Joshua Moore DO [Primary Care Provider] - Prescriptions: Ondansetron [Zofran Odt] 4 mg PO Q6H PRN #20 tab PRN Reason: Nausea <Abner Alicea - Last Filed: 07/22/17 04:19> Medical Problem HPI - Immun/Allergies/Home Medications Immunizations: IMMUNIZATION HX Immunizations Up to Date Yes History of Influenza Vaccine No Hx Pneumococcal Vaccination No ED Progress - Results and Orders Patient's Lab Results:: I have reviewed the patient's lab results. Results and Orders: Laboratory Tests 07/16/17 07/16/17 19:25 19:25 WBC 7.3 Hgb 13.5 Hct 40.0 Plt Count 290 Sodium 138 Potassium 3.5 Chloride 101 Carbon Dioxide 24.0 BUN 6 Creatinine 0.62 Random Glucose 89 Calcium 9.5 Magnesium 1.9 Total Bilirubin 0.4 AST 51 H ALT 74 H Alkaline Phosphatase 116 Total Protein 8.3 H Albumin 3.6 - Vital Signs Patient's Vital Signs:: I have reviewed the patient's vital signs. Vital Signs: Vital Signs 07/16/17 07/16/17 18:47 20:46 Temperature 37 C Pulse Rate 85 81 Respiratory 18 17 Rate Blood Pressure 133/76 130/70 O2 Sat by Pulse 99 99 Oximetry - Progress/Reassessment Progress:: Improved Progress Note-Subjective: 07/16/17 20:57 spoke with patient about diet, medication and n/v. Pt expressed understanding
[2017-07-16 19:34] LABS: Hemoglobin 13.5 gm/dL (12.5-16.0); Mean Cell Volume 83.7 fl (78-100); Mean Corpuscular Hemoglobin 28.2 pg (27-31); Mean Corpuscular Hgb Conc 33.8 g/dl (32-36); Mean Platelet Volume 10.3 fl (6.0-9.5); Neutrophil # 5.1 K/mm3 (1.3-6.0); Neutrophil % 70.7 % (42-75.0); Platelet Count 290 K/mm3 (150-450); Red Blood Count 4.78 M/mm3 (4.2-5.4); Red Cell Distribution Width 12.3 % (11.5-14.0); White Blood Count 7.3 K/mm3 (4.0-10.5)
[2017-07-16] MEDS ORDERED: ONDANSETRON HCL/PF 2 MG/ML VIAL ONE ×2 (19:41→19:45)
[2017-07-16 19:48] LABS: Albumin * 3.6 gm/dl (3.4-5.0); Anion Gap 16.5 mmol/L (6.8-13.8); BUN/Creatinine Ratio 9.7 (9.0-21.6); Bilirubin, Total 0.4 mg/dL (0.0-1.1); Ca. Corrected For Albumin 9.5 mg/dL (8.4-10.2); Calcium * 9.5 mg/dL (7.9-10.9); Magnesium 1.9 mg/dL (1.2-2.8); Potassium 3.5 mmol/L (3.4-4.6); Total Protein 8.3 gm/dL (6.2-8.2)
[2017-07-16 20:46] VITALS: BP 130/70
[2017-07-16] MEDS ORDERED: ONDANSETRON 4 MG TAB.RAPDIS PO ONE (20:58)
[2017-07-16] MEDS ORDERED: ONDANSETRON 4 MG TAB.RAPDIS ONE (21:02)
== END 2017-07-16 21:15 | disposition home or self-care (01) ==
LOC: ER 18:29
DX: K52.9 Noninfective gastroenteritis and colitis, unspecified (principal); Z3A.10 10 weeks gestation of pregnancy; Z33.1 Pregnant state, incidental
CPT/HCPCS: 36415; 80053; 83735; 85025; 96374; 99284; J2405

== ENCOUNTER 2017-09-09 17:24 | Emergency (ER) | payer MEDICAID ==
[2017-09-09 18:12] LABS: Hematocrit 36.6 % (37.0-47.0); Hemoglobin 12.2 gm/dL (12.5-16.0); Mean Cell Volume 85.5 fl (78-100); Mean Corpuscular Hemoglobin 28.5 pg (27-31); Mean Corpuscular Hgb Conc 33.3 g/dl (32-36); Mean Platelet Volume 10.4 fl (6.0-9.5); Neutrophil # 5.9 K/mm3 (1.3-6.0); Neutrophil % 66.2 % (42-75.0); Platelet Count 277 K/mm3 (150-450); Red Blood Count 4.28 M/mm3 (4.2-5.4); White Blood Count 8.9 K/mm3 (4.0-10.5)
[2017-09-09 18:36] LABS: Urine Bilirubin Negative (NEGATIVE); Urine Blood Negative /ul (NEGATIVE); Urine Ketone Negative (NEGATIVE); Urine Nitrite Negative (NEGATIVE); Urine Protein Negative (NEGATIVE); Urine Urobilinogen Normal (NORMAL)
[2017-09-09 18:39] LABS: Albumin * 2.9 gm/dl (3.4-5.0); Anion Gap 13.1 mmol/L (6.8-13.8); BUN/Creatinine Ratio 11.5 (9.0-21.6); Bilirubin, Total 0.2 mg/dL (0.0-1.1); Ca. Corrected For Albumin 9.4 mg/dL (8.4-10.2); Calcium * 8.8 mg/dL (7.9-10.9); Carbon Dioxide 25.5 mmol/L (24-32.6); Potassium 3.6 mmol/L (3.4-4.6); Total Protein 7.4 gm/dL (6.2-8.2)
[2017-09-09 18:50] LABS: Urine Appearance Clear; Urine Bacteria TRACE; Urine Color Yellow; Urine RBC None Seen /hpf (0-5); Urine WBC 0-5 /hpf (0-5)
--- NOTE | 2017-09-09 19:13 | ERNOTE ---
Abdominal HPI - General Chief Complaint: Abdominal Pain Time Seen by Provider: 09/09/17 17:51 Source: patient Exam Limitations: no limitations - Immun/Allergies/Home Medications Immunizatons: IMMUNIZATION HX Immunizations Up to Date Yes History of Influenza Vaccine No Hx Pneumococcal Vaccination No Allergies/Adverse Reactions: Allergies miconazole nitrate [From Monistat 3] Allergy (Verified 09/09/17 17:35) Hives skin cleanser combination no.17 [From Monistat 3] Allergy (Verified 09/09/17 17: 35) Hives Home Medications: HOME MEDICATIONS [id number]/Iron Fumarate/FA/Dss [ 19 Tablet] 1 each PO DAILY 06/23/17 [Last Taken Unknown] Ondansetron [Zofran Odt] 4 mg PO Q6H PRN #20 tab 07/16/17 [Last Taken Unknown] Ferrous Sulfate [Iron] 325 mg PO DAILY 07/31/17 [Last Taken Unknown] Cefuroxime Axetil [Ceftin] 250 mg PO Q12H #20 tab 09/09/17 [Last Taken Unknown] - History of Present Illness Narrative: Patient presents to the ED for abdominal cramping. She relates she has been having intermittent abdominal cramping across her low abdomen for 8 days off and on. She is approx 18-19 weeks . No clear contraction-like pain. No vaginal bleeding or fluid leaking. She called her OB and was told to watch this. She had increased cramping since noon and called OB who told her to come to the ED. No fever or vomiting. No localizing pain or localized RLQ pain. No upper abdominal pain. nothign seems to make it better or worse. Cramping mild right now. Not rhythmic or timed. not regular like uterine contractions. Timing: intermittent Quality: cramping Activities at Onset: none Modifying Factors - (Improves): Present: other - nothing Modifying Factors - (Worsens): Present: other - nothing Associated Symptoms: Absent: headache, chest pain, diaphoresis, fever/chills, nausea, vomiting, loss of appetite, shortness of breath Prior Abdominal Problems: Present: none Prior Treatment: Absent: recently seen Review of Systems - Review of Systems Constitutional: Absent: fever Respiratory: Absent: shortness of breath Cardiology: Absent: chest pain Gastrointestinal/Abdominal: Present: See HPI Genitourinary: Absent: dysuria Musculoskeletal: Absent: back pain Skin: Absent: rash - Patient's Past Medical History Patient History - Medical: Depression, Migraines, UTI'S, Other Patient History - Cardiac/Respiratory: No pertinent hx Patient History - Cancer: No Hx of Cancer Patient History - Surgical Procedures: EGD, Other Patient History - Other: None LMP (females 10-50): - Family History Mother Family History - Medical: No pertinent hx Father Family History - Medical: No pertinent hx Family History - Cardiac/Respiratory: No pertinent hx - Social History Living Situations: home Abuse History: No History of abuse Psych History: Hx of Anxiety, Hx of Depression Smoking Status: Former smoker Have you smoked in the past 12 months: No Do you dip or chew tobacco: No Alcohol Use: sober Drug Use: none - Immunizations Immunizations Up to Date: Yes Hx Pneumococcal Vaccination: No History of Influenza Vaccine: No Physical Exam - Physical Exam General Appearance: Present: alert, no apparent distress Head Exam: Present: normal inspection, no evidence of injury Eye Exam: Normal inspection: bilateral, PERRL: bilateral Ears, Nose, Throat: Present: normal ENT inspection Neck: Present: normal inspection Respiratory: Present: no respiratory distress, normal breath sounds, no accessory muscle use, lungs clear Cardiovascular/Chest: Present: regular rate, rhythm Gastrointestinal/Abdominal: Present: normal bowel sounds, nondistended, soft, other - FHTs 159. Mild tendenres suprapubic. No RLQ tendenress. No other tenderness in the abdomen. No peritoneal signs. No guarding or rebound. Patient by her report had a US Dec 7th placeing her at just over 18 weeks. Has been seeing Dr Moore for OB. Back Exam: Absent: CVA tenderness (R), CVA tenderness (L) Extremity Exam: Present: normal inspection, no edema Neurological Exam: Present: alert, normal mood/affect, no motor/sensory deficits Skin Exam: Present: normal color, warm/dry ED Progress - Results and Orders Patient's Lab Results:: I have reviewed the patient's lab results. - Vital Signs Patient's Vital Signs:: I have reviewed the patient's vital signs. Vital Signs: Vital Signs 09/09/17 09/09/17 09/09/17 17:26 17:55 18:01 Temperature 36.9 C Pulse Rate 100 86 88 Respiratory 18 18 16 Rate Blood Pressure 127/77 124/74 O2 Sat by Pulse 100 100 100 Oximetry 09/09/17 18:30 Temperature Pulse Rate 81 Respiratory 16 Rate Blood Pressure 104/66 O2 Sat by Pulse 98 Oximetry - Progress/Reassessment Chief Complaint: Abdominal Pain Progress Note-Subjective: 09/09/17 19:08 I discussed the case with Dr Quintana who sent her in. We discussed labs and her Sx. She recommends IM Rocephin for her UA and oral ABx with close office f/u. No further OB eval besides FHTs recommended at this time. No suggestion of pyelo, sepsis or toxicity. No suggestion of appendicitis, kidney stone or surgical process. I discussed warning signs and reasons to return as well as the need for close f/u. Departure Clinical Impression: UTI (urinary tract infection) - Departure Disposition: Home self-care Condition: Stable Instructions: Urinary Tract Infection, Adult, [id number] Additional Instructions: Rest. Fluids. Antibiotics as directed. Follow-up tomorrow with your OB for a re-check. Return for fever, vomiting, increased pain or if your condition worsens or changes in any way. Referrals: Joshua Moore DO [Primary Care Provider] - Prescriptions: Cefuroxime Axetil [Ceftin] 250 mg PO Q12H #20 tab
[2017-09-09 19:19] VITALS: BP 109/69
== END 2017-09-09 19:17 | disposition home or self-care (01) ==
LOC: ER 17:24
DX: O23.42 Unspecified infection of urinary tract in pregnancy, second trimester (principal); Z87.440 Personal history of urinary (tract) infections; Z87.891 Personal history of nicotine dependence; Z3A.18 18 weeks gestation of pregnancy